=== PATIENT | male | born 1955 | race Caucasian/White ===

== ENCOUNTER 2019-04-12 09:24 | Observation (INO) | payer MEDICARE ==
[2019-04-12] VITALS (9 sets, daily range): BP systolic 126–162; BP diastolic 60–88
[~2019-04-12] VITALS: Ht 182.9 cm; Wt 90.0 kg
[~2019-04-12 09:24] MED LIST: ANUCORT-HC25 MG RE; CIPROFLOXACN250 MG PO; COLACE100 MG PO; CYMBALTA30 MG PO; FENTANYL25 MCG/HR TD; FLEXERIL PO; FLOMAX0.4 M1 PO; FLONASE NASAL50 MCG; FLUOXETINE10 M2 PO; HORIZANT300 MG PO; HORIZANT600 MG PO; HYDROCODONE/ACE1 TAB PO; HYTRIN2 MG PO; HYTRIN5 MG PO; IMITREX25 MG PO; LORTAB 7.5-3251 TAB PO; MEDDOSEPAK PO; NAPROSYN500 MG PO; NORCO1 TA2 PO; PERCOCET 5/325M1 TAB PO; SEROQUEL50 MG PO; STRATTERA40 MG PO; TIZANIDINE HCL6 MG PO; TIZANIDINE4 MG PO; TRAMADOL HCL50 MG PO; TRAZODONE100 MG PO; TRAZODONE300 MG PO; [UNRECOGNIZED DRUG - OTHER] PO
[2019-04-12 10:09] LABS: HEMATOCRIT 44.9 % (39.0-50.0); HEMOGLOBIN 14.8 g/dl (14.0-18.0); IMMATURE GRANULOCYTES 0.3 % (0.0-5.0); MEAN CELL VOLUME 85.9 fL CALC (80.0-100.0); MEAN CORPUSCULAR HGB 28.3 pG CALC (26.0-32.0); NEUT# 4.15 thou/uL (1.82-7.42); RED BLOOD COUNT 5.23 mill/uL (4.70-6.10); RED CELL DISTRI WIDTH 13.2 % (11.5-15.5)
[2019-04-12 10:20] LABS: ANION GAP 14 (6-22 (CALC)); BUN 20 mg/dL (8-23); BUN/CREATININE RATIO 19 (12-20 (CALC)); CARBON DIOXIDE 24 mmol/l (22-30); CHLORIDE 110 mmol/l (95-108); GFR > 60 ML/MIN (>=60 (CALC)); GFR FOR AFR.AMER. > 60 ML/MIN (>=60 (CALC)); POTASSIUM 4.8 mmol/l (3.5-5.1); SODIUM 142 mmol/l (137-146)
[2019-04-12] MEDS ORDERED: INDOMETHACIN50 MG PO (10:32)
[2019-04-12] MEDS ORDERED: CYCLOBENZAPR10 MG PO (10:33)
[2019-04-12] MEDS ORDERED: PREDNISONE50 MG PO (10:35)
[2019-04-12] MEDS ORDERED: EPIPEN 2-P0.3 MG/0.3 IM (10:35)
[2019-04-13] VITALS: BP 140/71
[2019-04-13 02:00] VITALS: BP 131/73
[2019-04-13 04:00] VITALS: BP 154/81
[2019-04-13 05:49] LABS: ANION GAP 11 (6-22 (CALC)); BUN 19 mg/dL (8-23); BUN/CREATININE RATIO 23 (12-20 (CALC)); CARBON DIOXIDE 21 mmol/l (22-30); CHLORIDE 112 mmol/l (95-108); CREATININE 0.8 mg/dL (0.7-1.3); GFR > 60 ML/MIN (>=60 (CALC)); GFR FOR AFR.AMER. > 60 ML/MIN (>=60 (CALC)); POTASSIUM 4.2 mmol/l (3.5-5.1); SODIUM 140 mmol/l (137-146)
[2019-04-13 08:00] VITALS: BP 165/90
[2019-04-13] MEDS ORDERED: PEPCID20 MG PO (08:26)
[2019-04-13] MEDS ORDERED: LOTRISONE CREAM15 G1 EX (08:26)
== END 2019-04-13 09:10 | disposition home or self-care (01) ==
LOC: ED 09:24 → ED-I 12:55 → ED 13:26 → ICU 13:27
PROVIDERS: Family Medicine; Internal Medicine; ADMIT Internal Medicine; ATTEND Internal Medicine
DX: T63.481A Toxic effect of venom of other arthropod, accidental (unintentional), initial encounter (principal); T78.3XXA Angioneurotic edema, initial encounter; F43.10 Post-traumatic stress disorder, unspecified; Y93.55 Activity, bike riding

== ENCOUNTER 2021-08-14 11:39 | Inpatient (IN) | payer MEDICARE ==
[~2021-08-14] VITALS: Ht 182.9 cm; Wt 92.0 kg
[~2021-08-14 11:39] MED LIST changes: +CYCLOBENZAPR10 MG PO; +EPIPEN 2-P0.3 MG/0.3 IM; +INDOMETHACIN50 MG PO; +LOTRISONE CREAM15 G1 EX; +PEPCID20 MG PO; +PREDNISONE50 MG PO
[2021-08-14 12:59] LABS: HEMATOCRIT 44.8 % (39.0-50.0); HEMOGLOBIN 14.8 g/dl (14.0-18.0); IMMATURE GRANULOCYTES 0.3 % (0.0-5.0); MEAN CELL VOLUME 85.5 fL CALC (80.0-100.0); MEAN CORPUSCULAR HGB 28.2 pG CALC (26.0-32.0); NEUT# 7.75 thou/uL (1.82-7.42); RED BLOOD COUNT 5.24 mill/uL (4.70-6.10); RED CELL DISTRI WIDTH 13.7 % (11.5-15.5)
[2021-08-14 13:11] LABS: ALBUMIN 3.9 g/dL (3.2-5.0); ALKALINE PHOSPHATASE 79 u/l (38-126); ANION GAP 16 (6-22 (CALC)); BUN 16 mg/dL (8-23); BUN/CREATININE RATIO 15 (12-20 (CALC)); CARBON DIOXIDE 21 mmol/l (22-30); CHLORIDE 107 mmol/l (95-108); GFR > 60 ML/MIN (>=60 (CALC)); GFR FOR AFR.AMER. > 60 ML/MIN (>=60 (CALC)); LIPASE 76 u/l (23-300); POTASSIUM 3.8 mmol/l (3.5-5.1); SGOT/AST 25 u/l (19-48); SODIUM 140 mmol/l (137-146); TOTAL PROTEIN 6.7 g/dL (6.3-8.2)
[2021-08-14 13:12] LABS: BILIRUBIN, TOTAL 1.2 mg/dL (0.0-1.4)
[2021-08-14] MEDS ORDERED: MISOPROSTOL100 MCG PO (15:55)
[2021-08-14] MEDS ORDERED: LIOTHYRONINE PO (15:56)
[2021-08-14] MEDS ORDERED: LEVOTHYROXIN200 MCG PO (15:56)
[2021-08-14 16:32] LABS: URINE BILIRUBIN - DIPSTICK NEGATIVE (NEGATIVE); URINE BLOOD DIPSTICK NEGATIVE (NEGATIVE); URINE COLOR YELLOW; URINE GLUCOSE - DIPSTICK NEGATIVE (NEGATIVE); URINE KETONE NEGATIVE (NEGATIVE); URINE LEUK ESTERASE NEGATIVE (NEGATIVE); URINE PROTEIN - DIPSTICK NEGATIVE (NEG-TRACE); URINE SPECIFIC GRAVITY 1.025; URINE UROBILINOGEN - DIPSTICK 0.2 E.U./dL (0.2)
[2021-08-14 16:34] LABS: URINE NITRITE - DIPSTICK NEGATIVE (Negative)
[2021-08-14 16:57] VITALS: BP 123/64
[2021-08-14 19:00] VITALS: BP 116/60
[2021-08-15 04:00] VITALS: BP 116/51
[2021-08-15 06:16] LABS: MEAN CELL VOLUME 83.6 fL CALC (80.0-100.0); MEAN CORPUSCULAR HGB 28.4 pG CALC (26.0-32.0); RED BLOOD COUNT 4.57 mill/uL (4.70-6.10)
[2021-08-15 06:19] LABS: HEMATOCRIT 38.2 % (39.0-50.0)
[2021-08-15 06:35] LABS: ANION GAP 11 (6-22 (CALC)); BUN 17 mg/dL (8-23); BUN/CREATININE RATIO 17 (12-20 (CALC)); CARBON DIOXIDE 21 mmol/l (22-30); CHLORIDE 109 mmol/l (95-108); GFR > 60 ML/MIN (>=60 (CALC)); GFR FOR AFR.AMER. > 60 ML/MIN (>=60 (CALC)); MAGNESIUM 1.6 mg/dL (1.6-2.3); POTASSIUM 3.6 mmol/l (3.5-5.1); SODIUM 137 mmol/l (137-146)
[2021-08-15 07:30] VITALS: BP 112/62
[2021-08-15 16:23] VITALS: BP 119/68
[2021-08-15 19:39] VITALS: BP 118/57
[2021-08-16 04:21] VITALS: BP 128/69
[2021-08-16 05:36] LABS: HEMATOCRIT 38.2 % (39.0-50.0); MEAN CELL VOLUME 83.8 fL CALC (80.0-100.0); MEAN CORPUSCULAR HGB 28.5 pG CALC (26.0-32.0); RED BLOOD COUNT 4.56 mill/uL (4.70-6.10); RED CELL DISTRI WIDTH 14.1 % (11.5-15.5)
[2021-08-16 05:59] LABS: ANION GAP 9 (6-22 (CALC)); BUN 12 mg/dL (8-23); BUN/CREATININE RATIO 15 (12-20 (CALC)); CARBON DIOXIDE 22 mmol/l (22-30); CHLORIDE 111 mmol/l (95-108); CREATININE 0.8 mg/dL (0.7-1.3); GFR > 60 ML/MIN (>=60 (CALC)); GFR FOR AFR.AMER. > 60 ML/MIN (>=60 (CALC)); MAGNESIUM 1.8 mg/dL (1.6-2.3); POTASSIUM 3.9 mmol/l (3.5-5.1); SODIUM 138 mmol/l (137-146)
[2021-08-16 07:20] VITALS: BP 128/61
[2021-08-16 14:50] VITALS: BP 176/80
[2021-08-16 14:52] VITALS: BP 162/80
[2021-08-16 19:00] VITALS: BP 157/72
[2021-08-17 04:32] VITALS: BP 157/75
[2021-08-17 05:52] LABS: HEMATOCRIT 39.6 % (39.0-50.0); HEMOGLOBIN 13.2 g/dl (14.0-18.0); MEAN CELL VOLUME 85.7 fL CALC (80.0-100.0); MEAN CORPUSCULAR HGB 28.6 pG CALC (26.0-32.0); MEAN CORPUSCULAR HGB CONC 33.3 g/dL CAL (32.0-36.0); RED BLOOD COUNT 4.62 mill/uL (4.70-6.10); RED CELL DISTRI WIDTH 13.8 % (11.5-15.5)
[2021-08-17 06:07] LABS: ANION GAP 9 (6-22 (CALC)); BUN 15 mg/dL (8-23); BUN/CREATININE RATIO 16 (12-20 (CALC)); CARBON DIOXIDE 23 mmol/l (22-30); CHLORIDE 110 mmol/l (95-108); CREATININE 0.9 mg/dL (0.7-1.3); GFR > 60 ML/MIN (>=60 (CALC)); GFR FOR AFR.AMER. > 60 ML/MIN (>=60 (CALC)); POTASSIUM 3.9 mmol/l (3.5-5.1); SODIUM 138 mmol/l (137-146)
[2021-08-17 08:02] VITALS: BP 178/82
[2021-08-17] MEDS ORDERED: LEVAQUIN750 M1 PO (15:02)
[2021-08-17] MEDS ORDERED: MEDDOSEPAK PO (15:02)
== END 2021-08-17 15:36 | disposition home or self-care (01) | DRG 872 ==
LOC: ED 11:39 → ED-I 14:48 → MS2 15:06 → ED 15:06 → MS2 08-16 21:23
PROVIDERS: Family Medicine; Nurse Practitioner; ADMIT Internal Medicine; ATTEND Internal Medicine
PROC: 009U3ZX Drainage of Spinal Canal, Percutaneous Approach, Diagnostic (ICD-10-PCS; principal; 2021-08-15)
PROC: B01BZZZ Fluoroscopy of Spinal Cord (ICD-10-PCS; 2021-08-15)
DX: A41.51 Sepsis due to Escherichia coli [E. coli] (principal); I10 Essential (primary) hypertension; J31.0 Chronic rhinitis; K64.9 Unspecified hemorrhoids; N20.0 Calculus of kidney; K57.30 Diverticulosis of large intestine without perforation or abscess without bleeding; Z86.79 Personal history of other diseases of the circulatory system; Z88.0 Allergy status to penicillin
CPT/HCPCS: G0378; J1650; J3370; Q3014

== ENCOUNTER 2021-10-10 14:30 | Emergency (ER) | payer MEDICARE ==
[~2021-10-10] VITALS: Ht 182.9 cm; Wt 90.0 kg
[~2021-10-10 14:30] MED LIST changes: +LEVAQUIN750 M1 PO; +LEVOTHYROXIN200 MCG PO; +LIOTHYRONINE PO; +MISOPROSTOL100 MCG PO
[2021-10-10 15:17] LABS: HEMATOCRIT 43.8 % (39.0-50.0); HEMOGLOBIN 14.6 g/dl (14.0-18.0); MEAN CELL VOLUME 84.9 fL CALC (80.0-100.0); MEAN CORPUSCULAR HGB 28.3 pG CALC (26.0-32.0); MEAN CORPUSCULAR HGB CONC 33.3 g/dL CAL (32.0-36.0); NEUT# 3.71 thou/uL (1.82-7.42); RED BLOOD COUNT 5.16 mill/uL (4.70-6.10); RED CELL DISTRI WIDTH 13.7 % (11.5-15.5)
[2021-10-10 15:22] LABS: ALKALINE PHOSPHATASE 83 u/l (38-126); BUN 25 mg/dL (8-23); BUN/CREATININE RATIO 18 (12-20 (CALC)); CHLORIDE 110 mmol/l (95-108); CREATININE 1.4 mg/dL (0.7-1.3); GFR 50 ML/MIN (>=60 (CALC)); GFR FOR AFR.AMER. > 60 ML/MIN (>=60 (CALC)); POTASSIUM 4.4 mmol/l (3.5-5.1); SGOT/AST 19 u/l (19-48); SODIUM 138 mmol/l (137-146); TOTAL PROTEIN 7.1 g/dL (6.3-8.2)
[2021-10-10 15:26] LABS: ANION GAP 15 (6-22 (CALC)); BILIRUBIN, TOTAL 0.6 mg/dL (0.0-1.4); CARBON DIOXIDE 17 mmol/l (22-30)
[2021-10-10] MEDS ORDERED: CIPROFLOXACN500 MG PO (17:00)
[2021-10-10] MEDS ORDERED: HYDROCORTISONE12 PR (17:00)
[2021-10-10 17:09] VITALS: BP 130/70
== END 2021-10-10 17:10 | disposition home or self-care (01) ==
LOC: ED 14:30
PROVIDERS: Family Medicine
DX: A02.0 Salmonella enteritis (principal); N28.9 Disorder of kidney and ureter, unspecified